=== PATIENT | male | born 1935 | race Caucasian/White ===

== ENCOUNTER 2024-02-15 13:30 | Outpatient (CLI) | payer MEDICARE | END 2024-02-15 13:31 | disposition home or self-care (01) | LOC: CSHMRI 13:30 | PROVIDERS: ATTEND Family Medicine | DX: M96.1 Postlaminectomy syndrome, not elsewhere classified (principal); M41.9 Scoliosis, unspecified; M84.48XD Pathological fracture, other site, subsequent encounter for fracture with routine healing; M48.04 Spinal stenosis, thoracic region; M47.814 Spondylosis without myelopathy or radiculopathy, thoracic region; M47.816 Spondylosis without myelopathy or radiculopathy, lumbar region; G95.89 Other specified diseases of spinal cord | CPT/HCPCS: 72146; 72148 ==